=== PATIENT | female | born 1965 | race Caucasian/White ===

== ENCOUNTER 2017-02-17 21:39 | Emergency (ER) | payer MEDICARE, MEDICAID ==
[2017-02-17] MEDS ORDERED: Phenazopyridine 100 MG Tab ONE (22:30)
[2017-02-17] MEDS ORDERED: Ciprofloxacin 500 MG Tab ONE (22:30)
[2017-02-18 03:49] VITALS: BP 184/113
--- NOTE | 2017-02-22 08:51 | EDM.PDOC ---
ED HPI GENERAL MEDICAL PROBLEM - General Chief Complaint: Genitourinary Problem Stated Complaint: URINARY FREQUENCY Time Seen by Provider: 02/17/17 22:00 Source of Information: Reports: Patient History Limitations: Reports: No Limitations - History of Present Illness INITIAL COMMENTS - FREE TEXT/NARRATIVE: This is a 51yo F here for complaints of urinary frequency and burning. Patient has frequent UTI's and denies any fever or chills. Onset: Gradual Duration: Day(s):, Getting Worse Location: Reports: Pelvis Quality: Reports: Burning, Same as Previous Episode Severity: Mild Improves with: Reports: None Worsens with: Reports: None Bladder Pain Score (Numeric/FACES): 8 - Related Data Allergies Allergy/AdvReac Type Severity Reaction Status Date / Time No Known Allergies Allergy Verified 02/18/17 01:53 Home Meds: Home Meds FLUoxetine [PROzac] 20 mg PO DAILY 06/08/16 [History] Metoprolol Tartrate 50 mg PO DAILY 06/08/16 [History] buPROPion HCl [Wellbutrin SR] 150 mg PO DAILY 06/08/16 [History] clonazePAM [Clonazepam] 0.5 mg PO BID 06/08/16 [History] predniSONE [Prednisone] 5 mg PO DAILY MDD Taper 06/08/16 [History] traMADol [Ultram] 50 mg PO Q6H PRN 06/08/16 [History] traZODone 50 mg PO BEDTIME 06/08/16 [History] Past Medical History HEENT History: Reports: Impaired Vision 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: Endometrial Ablation, Other OB/BYN History: Has three children vaginal deliveries Musculoskeletal History: Reports: Arthritis, Back Pain, Chronic, Fibromyalgia, RA Neurological History: Reports: Migraines Psychiatric History: Reports: Bipolar, Mood Swings, Panic Attack - Infectious Disease History Infectious Disease History: Reports: Chicken Pox - Past Surgical History Neurological Surgical History: Reports: Sacral Spine, Other (See Below) Musculoskeletal Surgical History: Reports: Arthroscopic Knee, Ganglion Cyst, Joint Replacement, Other (See Below) Social & Family History - Family History Family Medical History: Noncontributory - Tobacco Use Smoking Status *Q: Unknown Ever Smoked Second Hand Smoke Exposure: No - Caffeine Use Caffeine Use: Reports: None - Recreational Drug Use Recreational Drug Use: No ED ROS GENERAL - Review of Systems Review Of Systems: ROS reveals no pertinent complaints other than HPI. ED EXAM, RENAL/ - Physical Exam Exam: See Below Exam Limited By: No Limitations General Appearance: Alert, WD/WN, Mild Distress Head: Atraumatic, Normocephalic Respiratory/Chest: No Respiratory Distress Cardiovascular: Normal Peripheral Pulses Extremities: Normal Inspection Neurological: Alert, Oriented, CN II-XII Intact Course - Vital Signs Last Recorded V/S: Last Vital Signs Temp 36.3 C 02/17/17 22:10 Pulse 97 02/17/17 22:10 Resp 16 02/17/17 22:10 BP 184/113 H 02/17/17 22:10 Pulse Ox 97 02/17/17 22:10 - Orders/Labs/Meds Labs: Laboratory Tests 02/17/17 Range/Units 21:55 Urine Color Yellow Urine Appearance Slightly cloudy (CLEAR) Urine pH 5.5 (5.0-8.0) Ur Specific [place] >= 1.030 (1.003-1.030) Urine Protein 100 H (NEGATIVE) mg/dL Urine Glucose (UA) Negative (NEGATIVE) mg/dL Urine Ketones Negative (NEGATIVE) mg/dL Urine Occult Blood Moderate H (NEGATIVE) Urine Nitrite Negative (NEGATIVE) Urine Bilirubin Small H (NEGATIVE) Urine Urobilinogen 0.2 (0.2-1.0) E.U./dL Ur Leukocyte Esterase Negative (NEGATIVE) Urine RBC 0-5 H /HPF Urine WBC 0-5 H /HPF Ur Squamous Epith Cells Moderate /HPF Calcium Oxalate Crystal Many /HPF Urine Bacteria Few /HPF Meds: Medications Discontinued Medications Generic Name Dose Route Start Last Admin Trade Name Sajiq PRN Reason Stop Dose Admin Ciprofloxacin 3,000 mg 02/17/17 22:30 Ciprofloxacin Hcl .ROUTE 02/17/17 22:31 .STK-MED ONE Phenazopyridine HCl 1,200 mg 02/17/17 22:30 Pyridium .ROUTE 02/17/17 22:31 .STK-MED ONE Departure - Departure Time of Disposition: 22:45 Disposition: Home, Self-Care 01 Condition: Good Clinical Impression: UTI, Urinary tract infectious disease - Discharge Information Instructions: Urinary Tract Infection, Adult, [id number] Referrals: PCP,None [Primary Care Provider] - Forms: ED Department Discharge Additional Instructions: Begin taking provided Cipro as directed: 1 tablet by mouth twice daily for 3 days. Also take provided Pyridium as directed: 1 tablet by mouth 3 times daily for pain. Drink plenty of fluids (water). If symptoms worsen, or persist, return to be seen in clinic. Call with any questions.
== END 2017-02-17 22:45 | disposition home or self-care (01) ==
LOC: LB.ED 21:39
DX: N39.0 Urinary tract infection, site not specified (principal); H54.7 Unspecified visual loss; G43.909 Migraine, unspecified, not intractable, without status migrainosus; Z79.899 Other long term (current) drug therapy
CPT/HCPCS: 81001; 99283; A9270

== ENCOUNTER 2017-03-15 18:13 | Emergency (ER) | payer MEDICARE, MEDICAID ==
--- NOTE | 2017-03-15 18:52 | EDM.PDOC ---
ED HPI GENERAL MEDICAL PROBLEM - General Chief Complaint: Gastrointestinal Problem Stated Complaint: Diarrhea x 2 months Time Seen by Provider: 03/15/17 18:15 Source of Information: Reports: Patient History Limitations: Reports: No Limitations - History of Present Illness INITIAL COMMENTS - FREE TEXT/NARRATIVE: According to patient she has psoriasis and rheumatoid arthritis and ankolysing spondylitis. Pt has been on remicaide. Pt claims her last remicaide infusion was approximately a week ago. Apparently she has had diarrhea for past 2 months , she claims she has had watery loose stool with cramps on and off for 2 months. The diarrhea comes and goes according to patient. She has been taking probiotics per her primary care provider in [place]. Today she claims she has had several episodes of explosive diarrhea, which are watery, not asso with blood or mucus, and has been cramping on and off with stools. No fever or chills , feels distended. She has been on several course of antibiotics recently. Initially she was treated for ear infection with antibiotics and about 1 wk ago she was treated for UTI with macrobid. Duration: Other (2 months) Generalized Pain Score (Numeric/FACES): 10 - Related Data Allergies Allergy/AdvReac Type Severity Reaction Status Date / Time No Known Allergies Allergy Verified 02/18/17 01:53 Home Meds: Home Meds FLUoxetine [PROzac] 20 mg PO DAILY 06/08/16 [History] Metoprolol Tartrate 50 mg PO DAILY 06/08/16 [History] buPROPion HCl [Wellbutrin SR] 150 mg PO DAILY 06/08/16 [History] clonazePAM [Clonazepam] 0.5 mg PO BID 06/08/16 [History] predniSONE [Prednisone] 5 mg PO DAILY MDD Taper 06/08/16 [History] traMADol [Ultram] 50 mg PO Q6H PRN 06/08/16 [History] traZODone 50 mg PO BEDTIME 06/08/16 [History] Past Medical History HEENT History: Reports: Impaired Vision [employer] History: Reports: Endometrial Ablation, Other OB/BYN History: Has three children vaginal deliveries Musculoskeletal History: Reports: Arthritis, Back Pain, Chronic, Fibromyalgia, RA Neurological History: Reports: Migraines Psychiatric History: Reports: Bipolar, Mood Swings, Panic Attack - Infectious Disease History Infectious Disease History: Reports: Chicken Pox - Past Surgical History Neurological Surgical History: Reports: Sacral Spine, Other (See Below) Musculoskeletal Surgical History: Reports: Arthroscopic Knee, Ganglion Cyst, Joint Replacement, Other (See Below) Social & Family History - Family History Family Medical History: Noncontributory - Tobacco Use Smoking Status *Q: Unknown Ever Smoked Second Hand Smoke Exposure: No - Caffeine Use Caffeine Use: Reports: None - Recreational Drug Use Recreational Drug Use: No ED ROS GENERAL - Review of Systems Review Of Systems: See Below Constitutional: Reports: Weakness, Fatigue. Denies: Fever, Chills, Night Sweats , Diaphoresis HEENT: Denies: Rhinitis, Throat Pain, Throat Swelling Respiratory: Denies: Cough, Sputum Cardiovascular: Denies: Chest Pain, Blood Pressure Problem, Lightheadedness GI/Abdominal: Reports: Abdominal Pain, Diarrhea, Distension, Flatus, Nausea. Denies: Black Stool, Bloody Stool, Vomiting : Denies: Dysuria, Flank Pain, Urinary Retention Musculoskeletal: Denies: Joint Pain, Joint Swelling Skin: Denies: Pruritis, Rash Neurological: Denies: Confusion, Dizziness, Weakness ED EXAM, GENERAL - Physical Exam Exam: See Below Exam Limited By: No Limitations General Appearance: Alert, WD/WN, No Apparent Distress Eye Exam: Bilateral Eye: EOMI, PERRL Ears: Normal External Exam, Normal Canal, Hearing Grossly Normal, Normal TMs Ear Exam: Bilateral Ear: Auricle Normal, Canal Normal, TM normal Nose: Normal Inspection, Normal Mucosa, No Blood Throat/Mouth: Normal Inspection, Normal Lips, Normal Teeth, Normal Gums, Normal Oropharynx, Normal Voice, No Airway Compromise Head: Atraumatic, Normocephalic Neck: Normal Inspection, Supple, Non-Tender, Full Range of Motion Respiratory/Chest: No Respiratory Distress, Lungs Clear, Normal Breath Sounds, No Accessory Muscle Use, Chest Non-Tender Cardiovascular: Normal Peripheral Pulses, Regular Rate, Rhythm, No Edema, No Gallop, No JVD, No Murmur, No Rub Peripheral Pulses: 2+: Radial (L), Radial (R) GI/Abdominal: Normal Bowel Sounds, Soft, Distended (mild distension), Tender ( all four quadrant to superficail and deep palpation). No: Guarding, Rigid, Rebound Neurological: Alert, Oriented Psychiatric: Anxious Skin Exam: Warm, Intact Course - Vital Signs Text/Narrative:: Pt's CBC is normal. CMP is normal. Her electrolytes and renal functions are normal. Pt feels better now. Her CT abdomen appears normal. She has not given stool sample as she claims she is not having urge to defecate now. She has been in the emergency room for 2 hrs now, still has not had stools sample. She is not in any discomfort at this time. i have advised her to go home and get the stool sample in am. Return if symptoms worsen. Otherwise followup with her Primary care provider in [place] in 1-2 days. Last Recorded V/S: Last Vital Signs Temp 98.1 F 03/15/17 19:03 Pulse 95 03/15/17 19:03 Resp 20 03/15/17 19:03 BP 203/142 H 03/15/17 19:03 Pulse Ox 97 03/15/17 19:03 - Orders/Labs/Meds Orders: Active Orders 24 hr Category Date Time Status Abdomen Pelvis wo Cont [CT] Stat Exams 03/15/17 18:45 Taken CLOSTRIDIUM DIFFICILE BY PCR [RM] Stat Lab 03/15/17 18:37 Uncollected CULTURE-STOOL [MREF] Stat Lab 03/15/17 18:44 Uncollected Labs: Laboratory Tests 03/15/17 03/15/17 Range/Units 18:55 18:55 WBC 10.1 (4.0-11.0) K/uL RBC 4.62 (3.80-5.80) M/uL Hgb 14.5 (11.5-16.5) g/dL Hct 42.0 (37.0-47.0) % MCV 91 (76-96) fL MCH 31.4 (27.0-32.0) pg MCHC 34.5 (31.0-35.0) g/dL RDW 12.4 (11.0-16.0) % Plt Count 232 (150-500) K/uL MPV 10.5 H (6.0-10.0) fL Neut % (Auto) 56.3 (45.0-70.0) % Lymph % (Auto) 32.5 (20.0-40.0) % [place] % (Auto) 8.9 (3.0-10.0) % Eos % (Auto) 1.4 (1.0-5.0) % Baso % (Auto) 0.9 H (0.0-0.5) % Neut # (Auto) 5.67 (2.00-7.50) K/uL Lymph # (Auto) 3.27 (1.50-4.00) K/uL [place] # (Auto) 0.90 H (0.20-0.80) K/uL Eos # (Auto) 0.14 (0.04-0.40) K/uL Baso # (Auto) 0.09 (0.02-0.10) K/uL Sodium 139 (136-145) mmol/L Potassium 3.7 (3.5-5.1) mmol/L Chloride 102 (98-107) mmol/L Carbon Dioxide 29.4 (21.0-32.0) mmol/L Anion Gap 11.3 (5.0-15.0) mmol/L BUN 16 D (8-26) mg/dL Creatinine 0.88 D (0.55-1.02) mg/dL Est Cr Clr Drug Dosing TNP Estimated GFR (MDRD) > 60 (>60) MLS/MIN BUN/Creatinine Ratio 18.2 (6-25) Glucose 99 (74-100) mg/dL Calcium 9.4 (8.5-10.1) mg/dL Total Bilirubin 0.4 D (0.0-1.0) mg/dL AST 17 (15-37) U/L ALT 32 (12-78) U/L Alkaline Phosphatase 54 (46-116) U/L Total Protein 8.0 (6.4-8.2) g/dL Albumin 3.9 (3.4-5.0) g/dL Globulin 4.1 (2.2-4.2) g/dL Albumin/Globulin Ratio 1.0 (0.8-2.0) Departure - Departure Time of Disposition: 19:45 Disposition: Home, Self-Care 01 Condition: Fair Clinical Impression: Chronic diarrhea - Discharge Information Forms: ED Department Discharge Additional Instructions: Bring stool sample back to facility once collected for processing. Drink plenty of fluids and get plenty of rest. Activity and diet as tolerated. Follow up with your primary care provider as soon as able for further evaluation. - My Orders Last 24 Hours: My Active Orders 03/15/17 18:37 CLOSTRIDIUM DIFFICILE BY PCR [RM] Stat 03/15/17 18:44 CULTURE-STOOL [MREF] Stat 03/15/17 18:45 Abdomen Pelvis wo Cont [CT] Stat - Assessment/Plan Last 24 Hours: My Active Orders 03/15/17 18:37 CLOSTRIDIUM DIFFICILE BY PCR [RM] Stat 03/15/17 18:44 CULTURE-STOOL [MREF] Stat 03/15/17 18:45 Abdomen Pelvis wo Cont [CT] Stat Assessment:: Chronic diarrhea Plan: Pt's CBC is normal. CMP is normal. Her electrolytes and renal functions are normal. Pt feels better now. Her CT abdomen appears normal. She has not given stool sample as she claims she is not having urge to defecate now. She has been in the emergency room for 2 hrs now, still has not had stools sample. She is not in any discomfort at this time. I have advised her to go home and get the stool sample in am. Return if symptoms worsen. Otherwise followup with her Primary care provider in [place] in 1-2 days.
[2017-03-15 19:04] VITALS: BP 203/142
--- NOTE | 2017-03-16 08:08 | CT ---
DATE OF SERVICE: 03/15/17 CLINICAL DATA: abdominal pain with chronic diarrhea UNENHANCED ABDOMEN AND PELVIC CT: Multislice acquisition through the abdomen and pelvis without IV or oral contrast was performed. No priors. The lung bases are clear. The unenhanced liver appears normal. The gallbladder appears normal. The spleen appears normal. The pancreas appears normal. The right and left adrenals appear normal. The right and left kidneys appear normal. No nephrocalcinosis or nephrolithiasis. No hydronephrosis or hydroureter. The bladder is partially fluid-filled and appears normal. The appendix is not visualized. No evidence of appendicitis. The patient is status post bilateral tubal ligation. There are surgical changes in the lower lumbar spine. No free air. No free fluid. No dilated loops of bowel. No adenopathy. No aortic aneurysm. There is an umbilical hernia containing fat. IMPRESSION: No acute abnormalities. Other findings as discussed above. [id number] [facility]
== END 2017-03-15 19:45 | disposition home or self-care (01) ==
LOC: LB.ED 18:13
DX: R19.7 Diarrhea, unspecified (principal); M19.90 Unspecified osteoarthritis, unspecified site; M06.9 Rheumatoid arthritis, unspecified; G43.909 Migraine, unspecified, not intractable, without status migrainosus; F41.0 Panic disorder [episodic paroxysmal anxiety]; F31.9 Bipolar disorder, unspecified; Z79.899 Other long term (current) drug therapy; Z98.890 Other specified postprocedural states
CPT/HCPCS: 36415; 74176; 80053; 85025; 99283; 99284-25

== ENCOUNTER 2022-11-25 07:23 | Emergency (ER) | payer MEDICARE ==
[2022-11-25 07:40] VITALS: BP 154/90; PULSE 80
[2022-11-25] MEDS ORDERED: Ketorolac 60 MG/2 ML SDV ONE (07:49)
[2022-11-25] MEDS ORDERED: Ketorolac 60 MG/2 ML SDV IM ONE (07:49)
[2022-11-25] MEDS ORDERED: Cyclobenzaprine 10 MG Tab ONE (08:00)
== END 2022-11-25 08:22 | disposition home or self-care (01) ==
LOC: LB.ED 07:23
DX: M51.9 Unspecified thoracic, thoracolumbar and lumbosacral intervertebral disc disorder (principal); I10 Essential (primary) hypertension; Z79.899 Other long term (current) drug therapy
CPT/HCPCS: 96372; 99283; A9270; J1885

== ENCOUNTER 2023-04-26 15:21 | Emergency (ER) | payer MEDICARE ==
[2023-04-26 16:31] LABS: INFLUENZA A NAA NEGATIVE (NEGATIVE); INFLUENZA B NAA NEGATIVE (NEGATIVE); RESPIRATORY SYNCYTIAL VIR NAA NEGATIVE (NEGATIVE)
[2023-04-26 16:39] LABS: CORONAVIRUS COVID-19 NAA NEGATIVE (NEGATIVE)
[2023-04-26 17:15] VITALS: BP 125/77; PULSE 68
== END 2023-04-26 16:54 | disposition home or self-care (01) ==
LOC: LB.ED 15:21
DX: J02.9 Acute pharyngitis, unspecified (principal); I10 Essential (primary) hypertension; Z20.822 Contact with and (suspected) exposure to COVID-19; Z79.899 Other long term (current) drug therapy
CPT/HCPCS: 0241U; 87430; 99282; 99283